=== PATIENT | female | born 1965 | race Caucasian/White ===

== ENCOUNTER → 2020-01-25 15:27 | Outpatient (CLI) | payer OTHER, SELFPAY ==
[2020-01-25 14:32] VITALS: BMI 51.9
== END ==
PROVIDERS: PCP Family Medicine; Referring Provider Internal Medicine Cardiovascular Disease; Visit Provider Internal Medicine Cardiovascular Disease
DX: Z00.00 Encounter for general adult medical examination without abnormal findings (principal)
CPT/HCPCS: 36415; 83880

== ENCOUNTER → 2020-01-27 08:08 | Outpatient (CLI) | payer SELFPAY, OTHER ==
[2020-01-25 14:32] VITALS: BMI 51.9
--- NOTE | 2020-01-27 08:10 | ECHOD_ITS ---
Reason For Study: Dyspnea/SOB Procedure This was a 2D Doppler, Color Flow transthoracic echocardiogram. Exam performed in department. Left Ventricle Normal left ventricle. Moderate concentric left ventricular hypertrophy. Left ventricular systolic function is normal. Stage 1 diastolic dysfunction. No regional wall motion abnormalities noted. Right Ventricle Normal RV size. Normal systolic function. Atria Normal left atrium. Normal right atrium. Mitral Valve Normal mitral valve. Tricuspid Valve Normal tricuspid valve. Aortic Valve Normal aortic valve. Trisinus/trileaflet aortic valve. Pulmonic Valve Normal pulmonic valve. Great Vessels Normal aortic root. The pulmonary artery is normal size. Normal inferior vena cava. Pericardium/Pleural No pericardial effusion. MMode/2D Measurements & Calculations LVIDd: 3.9 cm IVSd: 1.4 cm LA dimension: 3.8 cm LVIDs: 2.3 cm LVPWd: 1.5 cm FS: 41.9 % LAV(MOD-sp4): 42.3 ml LA A4 area: 16.8 cm2 RA A4 area: 12.4 cm2 Time Measurements MV dec time: 0.27 sec Doppler Measurements & Calculations MV E max ayush: 78.1 cm/sec Lat Peak E' Ayush: 8.9 cm/sec Med Peak E' Ayush: 8.2 cm/sec MV A max ayush: 95.1 cm/sec E/E' lat: 8.8 E/E' med: 9.5 MV E/A: 0.82 MV V2 max: 108.7 cm/sec MV P1/2t max ayush: 95.1 cm/sec Ao V2 max: 193.9 cm/sec MV max P.7 mmHg MV P1/2t: 66.0 msec Ao max P.0 mmHg MV V2 mean: 63.8 cm/sec MV dec slope: 422.2 cm/sec2 MV mean P.9 mmHg MVA(P1/2t): 3.3 cm2 MV V2 VTI: 27.0 cm LV V1 max: 139.1 cm/sec PA V2 max: 122.3 cm/sec LV V1 max P.7 mmHg Interpretation Summary Normal left ventricle. Left ventricular systolic function is normal. Moderate concentric left ventricular hypertrophy. Stage 1 diastolic dysfunction. Structurally normal valves. Ordering Physician: Marcellus Valencia Referring Physician: Marcellus Valencia Performed By: Maciel Yoo RCS
[2020-01-27 09:37] LABS: BNP,B-Type NATRIURETIC PEPTIDE 19.5 pg/mL (0-100)
== END ==
PROVIDERS: PCP Family Medicine; Referring Provider Internal Medicine Cardiovascular Disease; Visit Provider Internal Medicine Cardiovascular Disease
DX: R06.00 Dyspnea, unspecified (principal)
CPT/HCPCS: 83880; 93306; C9803

== ENCOUNTER → 2020-01-27 | Outpatient (CLI) | payer OTHER, SELFPAY ==
[2020-01-25 14:32] VITALS: BMI 51.9
== END | disposition home or self-care (01) ==
LOC: LABSPEC 10:56
PROVIDERS: PCP Family Medicine; Referring Provider Internal Medicine Cardiovascular Disease; Visit Provider Internal Medicine Cardiovascular Disease
DX: R06.00 Dyspnea, unspecified (principal)
CPT/HCPCS: 87426

== ENCOUNTER → 2020-12-21 08:11 | Outpatient (CLI) | payer OTHER, SELFPAY ==
[2020-06-20 08:46] VITALS: BMI 48.4
== END ==
PROVIDERS: PCP Family Medicine; Referring Provider Internal Medicine Cardiovascular Disease; Visit Provider Internal Medicine Cardiovascular Disease
DX: E03.9 Hypothyroidism, unspecified (principal)
CPT/HCPCS: 36415; 84443

== ENCOUNTER → 2021-08-02 | Outpatient (CLI) | payer OTHER, SELFPAY ==
[2021-08-02 16:40] LABS: Anion Gap 2 (5-15); BUN 20 mg/dL (7-18); BUN/Creat Ratio 24.6 RATIO (10-20); Calcium,Total 8.9 mg/dL (8.5-10.1); Chloride 106 mmol/L (98-107); Creatinine, Serum 0.81 mg/dL (0.55-1.02); EST Glomerular Filtration Rate 77 mL/min (>60); Est Glom Filt Rate - Afr Amer 93 mL/min (>60); Glucose 93 mg/dL (74-106); Magnesium 2.4 mg/dL (1.6-2.6); Potassium 3.6 mmol/L (3.5-5.1); Sodium Level 141 mmol/L (136-145); Thyroid Stim Hormone (TSH) 0.95 uIU/mL (0.358-3.74)
== END | disposition home or self-care (01) ==
LOC: LAB 15:03
PROVIDERS: PCP Family Medicine; Referring Provider Nurse Practitioner Family; Visit Provider Nurse Practitioner Family
DX: E03.9 Hypothyroidism, unspecified (principal); R00.2 Palpitations
CPT/HCPCS: 36415; 80048; 83735; 84443